=== PATIENT | male | born 1970 | race Caucasian/White ===

== ENCOUNTER 2021-08-19 15:36 | Outpatient (CLI) | payer OTHER ==
[2021-08-22 15:55] VITALS: BP 121/78
--- NOTE | 2021-08-22 15:55 | SLEEP CARE CONSULTATION ---
Information from patient questionnaire entered by Noemy Silveira MA. I have reviewed and concur with the information entered by Noemy Silveira MA. This document represents the service I personally performed and the decisions made by me, Roxanne Campos MD, [facility]. History of Present Illness Service Date and Time: 08/19/2021 1536 Reason for Visit: New patient (ONSET 03/2006, ON CPAP, PRIOR,) Chief Complaint: reports: Unrefreshed sleep, Snoring, Excessive daytime sleepiness, Fatigue, Other Date of Onset: LONG TIME Usual bedtime: 2129 2199 Time it takes to fall asleep: VARIES Snores at night: Yes Observed to quit breathing while asleep: No Sleeps alone due to snoring: No Number of times waking at night: 2 Reasons for waking at night: reports: Bathroom, Other Toss, Turn, or Twitch while sleeping: Yes Recalls having dreams: No Usually gets out of bed at: 0630 Feels refreshed in the morning: No Morning headache: No Sleepy or fatigued during the day: Yes Ever fallen asleep while driving: No Takes day naps: No Dreams during day naps: No Prior sleep studies: Yes Additional HPI information: I had the pleasure of seeing Mr. Dover today regarding obstructive sleep apnea-hypopnea. As you know, he is a 48-year-old gentleman who was diagnosed with the sleep-disordered breathing at [facility] in 2016. The AHI was 38.2, and kevin oxygen saturation, 86%. He was prescribed a CPAP device set at 12 14 cmH2O. He uses every night and all night. The compliance data show usage in 349 out of the past 360 nights, averaging 7.8 hours a night. The residual AHI is 0.5 and average air leak is 11.9 L/minute. He wears a ResMed AirFit N20 nasal mask. He gets his supplies from [facility] (the machine came from [employer]). He finds the treatment beneficial and can hardly sleep without it. - Parasomnia Symptoms Ever been unable to move upon waking from sleep: No Walks in sleep: No Talks in sleep: No Ever acted out dreams in sleep: No Subjective Initial [place] Sleepiness Scale score: 13 (08/19/2021) Past Medical History Past Medical History: reports: Hypertension Social History The patient's occupation is a [employer]. Patient is and lives in . Have you smoked in the past 12 months: No Alcohol use: Yes Alcohol amount and frequency: 2-3 X DAILY Caffeine use: Yes Caffeine amount and frequency: 1 X DAILY Allergies and Home Medications Known drug allergies: No Drug allergies reviewed: Yes Home medication list reviewed: Yes Review of Systems Cardiovascular: denies: high blood pressure, palpitations, chest pain, irregular heart rate or pulse, leg or foot swelling, have to sleep sitting up, other Respiratory: denies: shortness of breath, wheeze, sputum production, chronic cough, other Gastrointestinal: denies: heartburn, difficulty swallowing, nausea, vomitting, diarrhea, abdominal pain, other Urinary: denies: incontinence, frequency, urgency, impotence, other Neurological: denies: headaches, seizure, head trauma, disorientation, speech dysfunction, gait or balance problems, fainting or unconsciousness, other Psychiatric: denies: Attention Deficit Hyperactivity, anxiety, depression, mood disorder, claustrophobia, other Ear/Nose/Throat: denies: nasal congestion, sinus problems, nose bleeds, dry mouth/throat, hoarseness, injury to nose, tonsillectomy, wisdom teeth removed, other Endocrine: denies: thyroid disease, history of goiter, sluggishness, too hot or cold, excessive thirst, increased appetite, increased urination, unexplained weakness, other Physical Exam Vital signs obtained and entered by: Jordin SILVEIRA CMA [facility] Blood Pressure: 121/78 (RESP 16, PULSE 67, RIGHT) Heart Rate: 67 O2 Saturation: 99 (PAPER MASK) Height: 70 ft 6 in Weight: 210 lb 8 oz (CLOTHES) Weight change since last visit: TRYING TO LOOSE, GOAL 200LBS Body Mass Index: 0.1 BMI Classification: Underweight Neck circumference: 16 (INCHES) Impression and Plan IMPRESSION: 1. Obstructive Sleep Apnea-Hypopnea Syndrome, severe, as previously diagnosed. The patient has good CPAP compliance. He reports significant improvement on the treatment. The current pressure setting appears effective and comfortable. Because the CPAP is now older than the useful life of 5 years, I will order the patient a new one and make it an autoCPAP set between 12 and 14 cmH2O. Plan: 1. Prescription made for an autoCPAP, heated humidifier, and related supplies. 2. Return for follow up after one month of using the CPAP. Prescriptions: Auto CPAP Follow up with Sleep Care in: 1-2 months Visit Type: In Office Time Spent with Patient (minutes): 15 Provider Statement: I spent 100% of the Face to Face Visit with the patient with greater than 50% spent counseling the patient and coordination of care.
== END 2021-08-19 15:37 | disposition home or self-care (01) ==
LOC: SC 15:36
PROVIDERS: ATTEND Internal Medicine Pulmonary Disease
DX: G47.33 Obstructive sleep apnea (adult) (pediatric) (principal)
CPT/HCPCS: 99202; 99212

== ENCOUNTER 2022-12-08 16:56 | Outpatient (CLI) | payer OTHER ==
--- NOTE | 2022-12-08 14:52 | SLEEP CARE CONSULTATION ---
Information from patient questionnaire entered by Jerson Estrada. I have reviewed and concur with the information entered by Jerson Estrada. This document represents the service I personally performed and the decisions made by me, Roxanne Campos MD, [facility]. History of Present Illness Service Date and Time: 12/08/2022 1440 Reason for follow up: annual (LAST SEEN 08/2021) Equipment type: CPAP (RESMED) Prior sleep studies: Yes HPI additional information: Mr. Dover was diagnosed to have severe obstructive sleep apnea-hypopnea syndrome and returns today for follow up of CPAP therapy. The patient purchased the device from [employer] and was fitted with a nasal mask. He uses the device nightly and all through the night. The compliance report shows that he uses the device 180 nights out of the past 180 nights, averaging 8.3 hours a night. He complains of no particular problem with the device such as soreness on the face, dry nose, epistaxis, nasal congestion or headache. He thinks that the pressure of 12 - 14 cmH2O is comfortable. On the CPAP therapy he notices improvement in his sleep quality, and that he wakes up feeling fresher in the morning and more awake/alert during the day. His notices no snore at all. [place] Sleepiness Scale score is 10. The average residual AHI is 0.6; and average time in large leak per day is 8.8 minutes a night. The 90th percentile pressure is 12.9 cmH2O. Sleep Study - Results Prior sleep studies: Yes CPAP Compliance Data - Data Reviewed with Patient Average duration of nightly device use: 8HRS 17MINS Compliance rate %: 99 (06/08/22-12/04/22) Current pressure setting (cmH2O): 12-14 Average residual AHI: 0.6 Subjective Initial [place] Sleepiness Scale score: 13 (08/19/2021) Current [place] Sleepiness Scale score: 10 (12/08/22) Allergies and Home Medications Drug allergies reviewed: Yes Home medication list reviewed: Yes Review of Systems Cardiovascular: denies: high blood pressure, palpitations, chest pain, irregular heart rate or pulse, leg or foot swelling, have to sleep sitting up, other Respiratory: denies: shortness of breath, wheeze, sputum production, chronic cough, other Gastrointestinal: denies: heartburn, difficulty swallowing, nausea, vomitting, diarrhea, abdominal pain, other Urinary: denies: incontinence, frequency, urgency, impotence, other Neurological: denies: headaches, seizure, head trauma, disorientation, speech dysfunction, gait or balance problems, fainting or unconsciousness, other Physical Exam Vital signs obtained and entered by: JERSON Coulter MA Blood Pressure: 147/74 (PER PT) Height: 70 ft 6 in (PER PT) Weight: 218 lb (PER PT) Body Mass Index: 0.2 BMI Classification: Underweight Impression and Plan IMPRESSION: 1. Obstructive Sleep Apnea-Hypopnea Syndrome, severe, with the patient continuing to do well on nasal CPAP therapy. He has excellent compliance and significant clinical benefits. The current pressure appears effective and comfortable. Overall, he is very satisfied with treatment and plans to continue with it long-term. No adjustment is necessary today. PLAN: 1. Continue with autoCPAP set at 12 - 14 cm H2O. 2. Try to lose weight 3. Return in one year for follow up or earlier if there is any problem with the treatment. Counseling Topics: Weight control Prescriptions: Device supplies Follow up with Sleep Care in: 1 year Visit Type: In Office Time Spent with Patient (minutes): 15 Provider Statement: I spent 100% of the Face to Face Visit with the patient with greater than 50% spent counseling the patient and coordination of care.
[2022-12-08 14:59] VITALS: BP 147/74
== END 2022-12-08 16:57 | disposition home or self-care (01) ==
LOC: SC 16:56
PROVIDERS: ATTEND Internal Medicine Pulmonary Disease
DX: G47.33 Obstructive sleep apnea (adult) (pediatric) (principal)